=== PATIENT | male | born 1960 | race Two or more races ===

== ENCOUNTER 2017-09-16 17:53 | Inpatient (IN) | payer SELFPAY ==
[2017-09-16] MEDS ORDERED: MORPHINE SULFATE 4 MG/ML DISP.SYRIN. IV/SQ (18:00)
[2017-09-16 18:24] LABS: BASO % 0 % (0-3); EOS % 0 % (0-3); HEMATOCRIT 40.3 % (39.0-53.0); HEMOGLOBIN 13.4 g/dL (13.0-17.5); LYMPH # 0.6 x10^3/uL (1.0-4.8); LYMPH % 6 % (24-48); MEAN CORPUSCULAR HEMOGLOBIN 30 pg (25-35); MEAN CORPUSCULAR HGB CONC 33 g/dL (31-37); MEAN CORPUSCULAR VOLUME 89 fL (79-100); MONO # 0.6 x10^3/uL (0.0-1.1); MONO % 5 % (0-9); NEUT # 9.6 x10^3uL (1.8-7.7); NEUT % 88 % (31-73); PLATELET COUNT 251 x10^3/uL (140-400); RED BLOOD COUNT 4.51 x10^6/uL (4.30-5.70); RED CELL DISTRIBUTION WIDTH 14.1 % (11.5-14.5); WHITE BLOOD COUNT 10.9 x10^3/uL (4.0-11.0)
[2017-09-16 18:25] LABS: ADD MAN DIFF? YES
[2017-09-16 18:29] LABS: AGAP ISTAT 15 mmol/L (6-14); BUN ISTAT 15 mg/dL (8-26); CHLORIDE ISTAT 96 mmol/L (98-110); CREATININE ISTAT 0.7 mg/dL (0.5-1.4); GLUCOSE ISTAT 243 mg/dL (70-99); HEMATOCRIT ISTAT 41 % (37-52); HEMOGLOBIN ISTAT 13.9 g/dL (14-18); POTASSIUM ISTAT 4.3 mmol/L (3.5-5.0); SODIUM ISTAT 136 mmol/L (135-145); TOT CO2 ISTAT 30 mmol/L (23-32)
[2017-09-16 18:31] LABS: PROTHROMBIN TIME PATIENT 12.9 SEC (11.7-14.0)
[2017-09-16 18:35] LABS: ANION GAP 5 (6-14); BLOOD UREA NITROGEN 14 mg/dL (8-26); BUN/CREATININE RATIO 18 (6-20); CALCIUM 8.7 mg/dL (8.5-10.1); CARBON DIOXIDE 31 mmol/L (21-32); CHLORIDE 99 mmol/L (98-107); CREATININE 0.8 mg/dL (0.7-1.3); GFR 99.6; GLUCOSE 254 mg/dL (70-99); POTASSIUM 4.6 mmol/L (3.5-5.1); SODIUM 135 mmol/L (136-145)
[2017-09-16] MEDS ORDERED: NITROGLYCERIN SUBLINGUAL 0.4 MG BOTTLE OF 25. SL ×2 (18:35→20:15)
[2017-09-16 18:40] LABS: ALBUMIN 3.6 g/dL (3.4-5.0); ALBUMIN/GLOBULIN RATIO 0.8 (1.0-1.7); ALK PHOS 85 U/L (46-116); ALT (SGPT) 15 U/L (16-63); AST (SGOT) 16 U/L (15-37); LIPASE 129 U/L (73-393); MAGNESIUM 1.9 mg/dL (1.8-2.4); TOTAL BILIRUBIN 0.7 mg/dL (0.2-1.0); TOTAL PROTEIN 8.1 g/dL (6.4-8.2)
[2017-09-16] MEDS: ONDANSETRON PF 4 MG/2 ML VIAL. IV (18:40)
[2017-09-16] MEDS: NITROGLYCERIN SUBLINGUAL 0.4 MG BOTTLE OF 25. SL ×3 (18:42→19:39)
[2017-09-16 18:43] LABS: TROPONINI < 0.017 ng/mL (0.000-0.055)
[2017-09-16] MEDS ORDERED: IOHEXOL 300 MG/ML 100ML VIAL. IV (18:45)
[2017-09-16 18:46] LABS: CKMB INDEX 0.7 % (0-4); CKMB MASS 1.2 ng/mL (0.0-3.6); CREATINE KINASE 163 U/L (39-308)
[2017-09-16 18:46] LABS: NT-PRO BNP 76 pg/mL (0-124)
[2017-09-16 18:47] LABS: THYROID STIM HORMONE (TSH) 1.567 uIU/mL (0.358-3.74)
[2017-09-16] MEDS ORDERED: CONTRAST GIVEN MC (19:00)
[2017-09-16] MEDS ORDERED: MORPHINE SULFATE 4 MG/ML DISP.SYRIN. IV ×2 (19:15→20:15)
[2017-09-16] MEDS ORDERED: hydrALAZINE 20 MG/ML VIAL. IVP (19:15)
[2017-09-16] MEDS ORDERED: DOCUSATE SODIUM 100 MG CAPSULE. PO (19:15)
[2017-09-16] MEDS ORDERED: traMADol 50 MG TABLET PO (19:15)
[2017-09-16] MEDS ORDERED: ONDANSETRON PF 4 MG/2 ML VIAL. IV ×2 (19:15→20:15)
[2017-09-16] MEDS ORDERED: ACETAMINOPHEN 325 MG TABLET. PO (19:15)
[2017-09-16 19:37] LABS: % BASOS 1 % (0-3); % LYMPHS 7 % (24-48); % MONOS 2 % (0-10); % SEGS 90 % (35-66); PLT ESTIMATE ADEQUATE (ADEQUATE)
[2017-09-16] MEDS: ASPIRIN 325 MG TABLET PO ×2 (19:39→21:30)
[2017-09-16] MEDS: ENOXAPARIN 40 MG/0.4 ML SYRINGE. SQ (23:15)
[2017-09-17 02:19] LABS: ADD MAN DIFF? NO
[2017-09-17 02:37] LABS: BASO % 1 % (0-3); EOS % 1 % (0-3); HEMATOCRIT 38.7 % (39.0-53.0); LYMPH # 1.3 x10^3/uL (1.0-4.8); LYMPH % 16 % (24-48); MEAN CORPUSCULAR HEMOGLOBIN 30 pg (25-35); MEAN CORPUSCULAR HGB CONC 34 g/dL (31-37); MEAN CORPUSCULAR VOLUME 89 fL (79-100); MONO # 0.5 x10^3/uL (0.0-1.1); MONO % 6 % (0-9); NEUT % 77 % (31-73); PLATELET COUNT 242 x10^3/uL (140-400); RED BLOOD COUNT 4.33 x10^6/uL (4.30-5.70); RED CELL DISTRIBUTION WIDTH 13.9 % (11.5-14.5); WHITE BLOOD COUNT 7.8 x10^3/uL (4.0-11.0)
[2017-09-17 02:51] LABS: ANION GAP 7 (6-14); BLOOD UREA NITROGEN 11 mg/dL (8-26); CALCIUM 8.4 mg/dL (8.5-10.1); CARBON DIOXIDE 29 mmol/L (21-32); CHLORIDE 101 mmol/L (98-107); CREATININE 0.7 mg/dL (0.7-1.3); GFR 116.2; GLUCOSE 282 mg/dL (70-99); POTASSIUM 3.7 mmol/L (3.5-5.1); SODIUM 137 mmol/L (136-145)
[2017-09-17 02:55] LABS: CHOLESTEROL 168 mg/dL (0-200); HDLC 43 mg/dL (40-60); LDLC 112 mg/dL (0-100); NON-HDL CHOLESTEROL 125 mg/dL (0-129); TRIGLYCERIDES 64 mg/dL (0-150); VLDLC 13 mg/dL (0-40)
[2017-09-17 02:57] LABS: CHOLESTEROL/HDL RATIO 3.9
[2017-09-17 03:04] LABS: TROPONINI < 0.017 ng/mL (0.000-0.055)
[2017-09-17 09:06] LABS: TROPONINI < 0.017 ng/mL (0.000-0.055)
[2017-09-17] MEDS ORDERED: PANTOPRAZOLE 40 MG TABLET.DR. PO (19:10)
== END 2017-09-17 17:26 | disposition home or self-care (01) | DRG 313 ==
LOC: ER 17:53 → 2 SOUTH 18:36
DX: R07.9 Chest pain, unspecified (principal); I10 Essential (primary) hypertension; Z82.49 Family history of ischemic heart disease and other diseases of the circulatory system
CPT/HCPCS: 36415; 71045; 71275; 74174; 80047; 80048; 80053; 80061; 82553; 83690; 83735; 83880; 84443; 84484; 85007; 85025; 85610; 93005; 93306; 96374; 99285; 99285-25; J1650; J2405